=== PATIENT | female | born 1965 | race Caucasian/White ===

== ENCOUNTER 2017-03-28 16:49 | Emergency (ER) | payer BC ==
[2017-03-28 17:08] VITALS: BP 164/76
--- NOTE | 2017-03-28 17:54 | UC ---
Lower Extremity/Ankle HPI - HPI Summary HPI Summary: 52 year old female with fall down 4 wooden steps outside home due to wet steps, no lightheadedness, dizziness/ LOC headache prior to fall or afterwards. no incontinence. Patient states immediate pain, numbness, was able to crawl up stairs, get keys. Drove herself to , states pain worsening. No falling, no numbness now- replaced with pain. sensation grossly intact. - History of Current Complaint Chief Complaint: UCTrauma Stated Complaint: BACK AND HIP INJURY Time Seen by Provider: 03/28/17 17:21 Hx Obtained From: Patient - Allergies/Home Medications Allergies/Adverse Reactions: Allergies Allergy/AdvReac Type Severity Reaction Status Date / Time Bees Allergy Swelling Uncoded 03/28/17 17:08 PMH/Surg Hx/FS Hx/Imm Hx Previously Healthy: Yes - Surgical History Surgical History: Yes Surgery Procedure, Year, and Place: Hysterectomy 1985; kidney age 6; APPENDECTOMY - Family History Known Family History: Positive: None Family History: NON CONTRIBUTORY - Social History Alcohol Use: None Substance Use Type: None Smoking Status (MU): Light Every Day Tobacco Smoker Type: Cigarettes Amount Used/How Often: 13 cigarettes in last 2 days Have You Smoked in the Last Year: Yes Household Exposure Type: Cigarettes - Immunization History Most Recent Tetanus Shot: unknown Review of Systems Musculoskeletal: Arthralgia, Decreased ROM, Myalgia All Other Systems Reviewed And Are Negative: Yes Physical Exam Triage Information Reviewed: Yes Appearance: No Pain Distress, Pain Distress - mild at rest, moderate with movement Vital Signs: Initial Vital Signs Temp 98.3 F 03/28/17 17:00 Pulse 100 03/28/17 17:00 BP 164/76 03/28/17 17:00 Pulse Ox 98 03/28/17 17:00 Vital Signs Reviewed: Yes Abdomen Description: Positive: Nontender Musculoskeletal: Positive: Other: - full ankle, knee, toes ROM/strengt= b/l, no tenderness with R hip palption, no hand, wrist, elbow, shoulder tendnerness b/l , full ROM cervical grossly, no tenderness over thoracic spine- + erythema, mild edema over lower spine ~ L@ level with pain with palpation over, extending over SI crest L laterally. + mild ecchymosis. PT pulses 2+ b/l. Ambulatory with antalgic gait favoring L side. negative straight leg. reflexes diminished b/l ach, pat. patient voided on own without complication, no incontinence,denies numbness, tingling, sensation grossly intact b/l LEs Neurological: Positive: Alert, Muscle Tone Normal Psychological Exam: Normal Skin: Positive: Other - mild erythema without skin breakage lower back, mild ecchymosis Lower Extremity Course/Dx - Course Course Of Treatment: radiograph negative- Motrin, percocet as needed for pain. Percocet for extreme pain, f/u in Er with increased symtpoms, incontinence. - Differential Dx/Diagnosis Differential Diagnosis/HQI/PQRI: Contusion, Osteomyelitis, Sprain, Strain, Tendonitis Provider Diagnoses: contusion, L hip, lower back strain Discharge - Discharge Plan Condition: Stable Disposition: HOME Prescriptions: oxyCODONE/Acetamin 5/325 MG* [Percocet 5/325 TAB*] 1 tab PO Q4H PRN #14 tab MDD 6 PRN Reason: Pain Patient Education Materials: Contusion in Adults (ED), Low Back Strain (ED) Forms: *Work Release Referrals: Yamileth Donaldson MD [Primary Care Provider] - Additional Instructions: - Return to ER with incontinence, increased pain, numbness/ dificulty walking or new symptoms - Percocet every 4 hours as needed for pain- do not take more than [address], operate machinery on medication - Follow up with primary if no relief within 2 days - ICe - Motrin 400-600 mg every 4-6 hours to decrease inflammation/ pain
--- NOTE | 2017-03-28 18:05 | RAD ---
Indication: Lumbar and LEFT hip pain post fall. Comparison: December 23, 2015 CT. Technique: Supine AP pelvis and AP and frog-leg lateral views LEFT hip. Report: The LEFT hip is normally located. Negative for pelvic joint diastases. Negative for LEFT proximal femur or pelvic fracture. Preserved hip joint spaces. Unremarkable soft tissue contours. IMPRESSION: No radiographic evidence for LEFT hip fracture.
--- NOTE | 2017-03-28 18:07 | RAD ---
Indication: L2-L4 region pain and bruising post fall. Comparison: December 23, 2015 CT. Technique: AP, lateral, and oblique views lumbar sacral spine. Report: Alignment is anatomic. No cortical disruption or trabecular impaction to indicate a vertebral body fracture. Oblique views without evidence for spondylolysis. Multilevel mild vertebral endplate osteophytosis without significant disc space narrowing. Atherosclerotic calcification of the abdominal aorta. Unremarkable paraspinal soft tissue contours. Pelvic phleboliths noted. IMPRESSION: Negative for lumbar sacral spine fracture or spondylolisthesis.
[2017-03-28] MEDS ORDERED: Ibuprofen TAB* 600 MG PO ONE (18:09)
== END 2017-03-28 18:34 | disposition home or self-care (01) ==
LOC: UCEAST 16:49
DX: S70.02XA Contusion of left hip, initial encounter (principal); S39.012A Strain of muscle, fascia and tendon of lower back, initial encounter; W10.9XXA Fall (on) (from) unspecified stairs and steps, initial encounter; Y93.9 Activity, unspecified; Y92.009 Unspecified place in unspecified non-institutional (private) residence as the place of occurrence of the external cause; Y99.9 Unspecified external cause status; Z72.0 Tobacco use
CPT/HCPCS: 72110; 99212; A9270-GY; G0463

== ENCOUNTER 2017-08-13 07:55 | Emergency (ER) | payer BC ==
[2017-08-13 08:11] VITALS: BP 139/77
--- NOTE | 2017-08-13 08:51 | UC ---
Ear Complaint HPI - HPI Summary HPI Summary: 3 weeks of sinus pain and congestion now both ears are hurting - History of Current Complaint Chief Complaint: UCRespiratory Stated Complaint: HEAD/CHEST CONGESTION EAR PAIN Time Seen by Provider: 08/13/17 08:42 Hx Obtained From: Patient Hx Last Menstrual Period: hyster ?: No Onset/Duration: Gradual Onset, Lasting Weeks - 3, Still Present Severity Initially: Moderate Severity Currently: Moderate Pain Intensity: 8 Pain Scale Used: 0-10 Numeric Aggravating Factors: Nothing Alleviating Factors: Nothing Associated Signs/Symptoms: Positive: URI Symptoms - Allergies/Home Medications Allergies/Adverse Reactions: Allergies Allergy/AdvReac Type Severity Reaction Status Date / Time Bees Allergy Swelling Uncoded 08/13/17 08:07 Home Medications: Home Medications Varenicline (NF) [Chantix 1 MG TAB (NF)] 1 mg PO DAILY 08/13/17 [History Confirmed 08/13/17] PMH/Surg Hx/FS Hx/Imm Hx Previously Healthy: Yes - Surgical History Surgical History: Yes Surgery Procedure, Year, and Place: Hysterectomy 1985; kidney age 6; APPENDECTOMY - Family History Known Family History: Positive: None - Social History Occupation: Employed Full-time Lives: With Family Alcohol Use: None Substance Use Type: None Smoking Status (MU): Light Every Day Tobacco Smoker Type: Cigarettes Amount Used/How Often: 13 cigarettes in last 2 days Have You Smoked in the Last Year: Yes Household Exposure Type: Cigarettes Cessation Counseling: Counseled 3+Min - 10 Min - has started chantix - Immunization History Most Recent Tetanus Shot: unknown Review of Systems Constitutional: Negative Skin: Negative Eyes: Negative ENT: Sore Throat, Ear Ache, Nasal Discharge, Sinus Congestion, Sinus Pain/ Tenderness Respiratory: Negative Cardiovascular: Negative Gastrointestinal: Negative Genitourinary: Negative Motor: Negative Neurovascular: Negative Musculoskeletal: Negative Neurological: Negative Psychological: Negative Is Patient Immunocompromised?: No All Other Systems Reviewed And Are Negative: Yes Physical Exam Triage Information Reviewed: Yes Appearance: Well-Appearing, No Pain Distress, Well-Nourished Vital Signs: Initial Vital Signs Temp 97.6 F 08/13/17 08:08 Pulse 78 08/13/17 08:08 Resp 16 08/13/17 08:08 BP 139/77 08/13/17 08:08 Pulse Ox 100 08/13/17 08:08 Vital Signs Reviewed: Yes Eye Exam: Normal Eyes: Positive: Conjunctiva Clear ENT Exam: Normal ENT: Positive: Normal ENT inspection, Hearing grossly normal, Pharynx normal, Nasal congestion, Nasal drainage, TMs normal, Sinus tenderness, Uvula midline. Negative: Tonsillar swelling, Tonsillar exudate, Trismus, Muffled voice, Hoarse voice, Dental tenderness Dental Exam: Normal Neck exam: Normal Neck: Positive: Supple, Nontender, No Lymphadenopathy Respiratory Exam: Normal Respiratory: Positive: Chest non-tender, Lungs clear, Normal breath sounds, No respiratory distress, No accessory muscle use Cardiovascular Exam: Normal Cardiovascular: Positive: RRR, No Murmur, Pulses Normal, Brisk Capillary Refill Musculoskeletal Exam: Normal Musculoskeletal: Positive: Strength Intact, ROM Intact, No Edema Neurological Exam: Normal Neurological: Positive: Alert, Muscle Tone Normal Psychological Exam: Normal Skin Exam: Normal Ear Complaint Course/Dx - Course Course Of Treatment: Augmentin, flonase increase fluids, continue Chantix follow with pcp prn - Differential Dx/Diagnosis Provider Diagnoses: Acute Sinusitis Discharge - Discharge Plan Condition: Stable Disposition: HOME Prescriptions: Amoxicillin/Clavulanate TAB* [Augmentin TAB 875*] 875 mg PO BID #20 tab Fluticasone NASAL SPRAY 50MCG* [Flonase NASAL SPRAY 50MCG*] 2 spray BOTH NARES DAILY #1 btl Patient Education Materials: How to Stop Smoking (ED), Sinusitis (ED) Referrals: Yamileth Donaldson MD [Primary Care Provider] - If Needed
== END 2017-08-13 08:55 | disposition home or self-care (01) ==
LOC: UCEAST 07:55
DX: J01.90 Acute sinusitis, unspecified (principal); Z71.6 Tobacco abuse counseling; F17.210 Nicotine dependence, cigarettes, uncomplicated
CPT/HCPCS: 99212; G0463

== ENCOUNTER 2018-05-18 10:09 | Emergency (ER) | payer BC ==
--- NOTE | 2018-05-18 10:58 | ED ---
HPI Chest Pain - HPI Summary HPI Summary: The pt is a 53 y/o female [facility] c/o L sided CP since 3 days ago worsened today morning. The pain rated 8/10 in severity is described as stabbing and radiates to the L shoulder and LUE. She notes nausea, cough, metallic taste, loss of appetite, a metallic taste in the mouth, numbness and dizziness but denies L breast pain, fever, chills, diarrhea, vomiting, and SOB. She took Ibuprofen and Alleve to no relief. - History of Current Complaint Chief Complaint: EDChestPainROMI Time Seen by Provider: 05/18/18 10:48 Hx Obtained From: Patient Hx Last Menstrual Period: hyster Onset/Duration: Started Days Ago - 3 days, Still Present Initial Severity: Severe Current Severity: Severe Pain Intensity: 8 Pain Scale Used: 0-10 Numeric Chest Pain Location: Discrete at: - L chest Chest Pain Radiates To:: Shoulder - L, Arm - L Character: Sharp/Stabbing Alleviating Factor(s): Nothing - Allergy/Home Medications Allergies/Adverse Reactions: Allergies Allergy/AdvReac Type Severity Reaction Status Date / Time bee venom protein (honey bee) Allergy Swelling Verified 05/18/18 10:26 PMH/Surg Hx/FS Hx/Imm Hx Previously Healthy: No Endocrine/Hematology History: Reports: Hx Diabetes - TYPE II- borderline Denies: Hx Thyroid Disease Cardiovascular History: Reports: Hx Hypercholesterolemia Denies: Hx Hypertension Respiratory History: Reports: Hx Asthma Denies: Hx Chronic Obstructive Pulmonary Disease (COPD) GI History: Denies: Hx Ulcer - Cancer History Cancer Type, Location and Year: None reported - Surgical History Surgery Procedure, Year, and Place: Hysterectomy 1985; kidney age 6; APPENDECTOMY Infectious Disease History: No Infectious Disease History: Reports: Hx Shingles - 2003 Denies: Hx Clostridium Difficile, Hx Hepatitis, Hx Human Immunodeficiency Virus (HIV), Hx of Known/Suspected MRSA, Hx Tuberculosis, Hx Known/Suspected VRE , Hx Known/Suspected VRSA, History Other Infectious Disease, Traveled Outside the [place] in Last 30 Days - Family History Known Family History: Positive: Hypertension, Other - Throat cancer- brother ; Lung cancer- mother Negative: Cardiac Disease Family History: CANCER - Social History Occupation: Employed Full-time Lives: With Family Alcohol Use: None Hx Substance Use: No Substance Use Type: Reports: None Hx Tobacco Use: Yes Smoking Status (MU): Former Smoker Type: Cigarettes Amount Used/How Often: 13 cigarettes in last 2 days Have You Smoked in the Last Year: Yes Review of Systems Constitutional: Negative - L breast pain, Other - Positive: Dizziness Negative: Fever, Chills Positive: Chest Pain - L sided Positive: Cough. Negative: Shortness Of Breath Gastrointestinal: Other - Positive: Metallic taste in the mouth, loss of appetite Positive: Nausea. Negative: Vomiting, Diarrhea Musculoskeletal: Other - Positive: L shoulder pain , LUE pain Positive: Numbness All Other Systems Reviewed And Are Negative: Yes Physical Exam - Summary Physical Exam Summary: GENERAL: Patient is a well developed and nourished F who is lying comfortable in the stretcher. Patient is not in any acute respiratory distress. HEAD AND FACE: Normocephalic EYES: PERRLA, EOMI x 2. EARS: Hearing grossly intact. MOUTH: Oropharynx within normal limits. NECK: Supple, trachea is midline, no adenopathy, no JVD, no carotid bruit. CHEST: Symmetric, no tenderness at palpation LUNGS: Clear to auscultation bilaterally. No wheezing or crackles. CVS: Regular rate and rhythm, S1 and S2 present, no murmurs or gallops appreciated. ABDOMEN: Soft, non-tender. Bowel sounds are normal. No abdominal abnormal pulsations. EXTREMITIES: Full ROM in all major joints, no edema, no cyanosis or clubbing. NEURO: Alert and oriented x 3. No acute neurological deficits. Speech is normal and follows commands. SKIN: Dry and warm Triage Information Reviewed: Yes Vital Signs On Initial Exam: Initial Vitals Temp Pulse Resp BP Pulse Ox 97.1 F 81 16 166/94 97 05/18/18 10:21 05/18/18 10:21 05/18/18 10:21 05/18/18 10:21 05/18/18 10:21 Vital Signs Reviewed: Yes Diagnostics - Vital Signs Vital Signs Temp Pulse Resp BP Pulse Ox 05/18/18 10:21 97.1 F 81 16 166/94 97 - Laboratory Result Diagrams: 05/18/18 11:53 05/18/18 11:53 Lab Statement: Any lab studies that have been ordered have been reviewed, and results considered in the medical decision making process. - Radiology CXR Radiology Interpretation Completed By: Radiologist - IMPRESSION: NO ACTIVE CARDIOPULMONARY DISEASE. The ED physician reviewed this radiology report. - EKG 10:26 Cardiac Rate: NL - 71 bpm EKG Rhythm: Sinus Rhythm Summary of EKG Findings: No ischemic changes Re-Evaluation - Re-Evaluation First Eval Re-Evaluation Time: 13:12 Change: Improved - The patient wants to leave AMA because she has to pick her children from school. She agreed to return to the ED in case of any chages or worsening of sx. Chest Pain Course/Dx - Course Course Of Treatment: A 53 year-old F presents to the ED with a CC of L sided CP since 3 days ago worsened today morning. The pain rated 8/10 in severity is described as stabbing and radiates to the L shoulder and LUE. She notes nausea , cough, metallic taste, loss of appetite, a metallic taste in the mouth, numbness and dizziness but denies fever, chills, vomiting, diarrhea and SOB. A physical exam is unremarkable. A CXR and an EKG are both unremarkable. In the ED course, pt was given ASA 324mg PO and NTG 0.4 mg SL which improved the symptoms. Patient will be discharged AMA with a final Dx of Chest Pain. I discussed results with patient. Upon re-evaluation, the patient wants to leave AMA because she has to pick her children from school. Strict return precautions given and she will otherwise follow up with her PCP and a technology architect. The pt agrees. Allergies noted. - Diagnoses Provider Diagnoses: Chest pain Discharge - Sign-Out/Discharge Documenting (check all that apply): Patient Departure - AMA - Discharge Plan Condition: Stable Disposition: AGAINST MEDICAL ADVICE Patient Education Materials: Chest Pain (ED) Referrals: Felix Dubon MD [Primary Care Provider] - Mike Gaviria MD [Medical Doctor] - Additional Instructions: Follow up with PCP in 1- 3 days. Follow up with the technology architect as a soon as possible. Return to ED for any new or worsening symptoms - Billing Disposition and Condition Condition: STABLE Disposition: Against Medical Advice - Attestation Statements Document Initiated by Scribe: Yes Documenting Scribe: Estelle Calles Provider For Whom Scribe is Documenting (Include Credential): Dr. Meena Carlton MD Scribe Attestation: Estelle Rico , scribed for Dr. Meena Carlton MD on 05/18/18 at 2048. Scribe Documentation Reviewed: Yes Provider Attestation: The documentation as recorded by the scribEstelle gonzalez accurately reflects the service I personally performed and the decisions made by me, Dr. Meena Carlton MD
[2018-05-18 12:19] LABS: ABS Basophils 0.1 10^3/ul (0-0.2); ABS Eosinophils 0.1 10^3/ul (0-0.6); ABS Lymphocytes 3.9 10^3/ul (1.0-4.8); ABS Monocytes 0.5 10^3/ul (0-0.8); ABS Neutrophils 3.3 10^3/ul (1.5-7.7); ABS Nucleated RBC 0 10^3/ul; Eosinophil % 1.5 % (0-6); Hematocrit 46 % (35-47); Hemoglobin 15.7 g/dl (12.0-16.0); Lymphocyte % 49.3 % (25-47); Mean Corpuscular HGB Conc 34 g/dl (31-36); Mean Corpuscular Hemoglobin 29 pg (27-31); Mean Corpuscular Volume 87 fL (80-97); Mean Platelet Volume 9.6 um3 (7.4-10.4); Nucleated Red Blood Cells % 0.1; Platelet Count 208 10^3/ul (150-450); Red Blood Count 5.35 10^6/ul (4.00-5.40); Red Cell Distribution Width 13 % (10.5-15)
[2018-05-18 12:22] LABS: Urine Appearance Clear; Urine Blood Negative (Negative); Urine Color Yellow; Urine Ketones Negative (Negative); Urine Protein Negative (Negative); Urine Urobilinogen Negative (Negative)
--- NOTE | 2018-05-18 12:25 | RAD ---
HISTORY: cp COMPARISONS: December 16, 2014 VIEWS: 4: Frontal dual-energy and lateral views of the chest. FINDINGS: CARDIOMEDIASTINAL SILHOUETTE: The cardiomediastinal silhouette is normal. DONNA: The donna are normal. PLEURA: The costophrenic angles are sharp. No pleural abnormalities are noted. LUNG PARENCHYMA: The lungs are clear. ABDOMEN: The upper abdomen is clear. There is no subphrenic gas. BONES AND SOFT TISSUES: No bone or soft tissue abnormalities are noted. OTHER: None. IMPRESSION: NO ACTIVE CARDIOPULMONARY DISEASE.
[2018-05-18 12:30] LABS: INR 0.89 (0.77-1.02)
[2018-05-18 12:38] LABS: EGFR Non-African American 79.9 (>60)
[2018-05-18] MEDS ORDERED: Aspirin 81 mg CHEW TAB* 81 MG TAB.CHEW PO ONE (13:06)
[2018-05-18] MEDS ORDERED: Nitroglycerin TAB 0.4 MG* 0.4 MG TAB SL ONE (13:06)
[2018-05-18 13:24] VITALS: BP 168/97
== END 2018-05-18 13:23 | disposition left against medical advice (07) ==
LOC: ED 10:09
DX: R07.89 Other chest pain (principal); R11.0 Nausea; R05 Cough; R42 Dizziness and giddiness; R20.0 Anesthesia of skin; Z91.030 Bee allergy status; Z87.891 Personal history of nicotine dependence
CPT/HCPCS: 36415; 71046; 80053; 81003; 83605; 83880; 84484; 85025; 85379; 85610; 85730; 93005; 99283; A9270-GY

== ENCOUNTER 2019-10-14 12:04 | Emergency (ER) | payer BC ==
[2019-10-14 12:24] VITALS: BP 137/74
--- NOTE | 2019-10-14 12:56 | UC ---
General HPI - HPI Summary HPI Summary: 54yo female presenting with "painful lump between breasts" x3 days. Patient states she can feel the lump. States she thought it was from her wire in her bra poking her but it has not improved since wearing bra without wire. 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 States pain is worse with lying flat, pushing on it, and taking deep breaths. Denies radiating pain. Notes nonproductive cough that she has had "for months since starting smoking again." Denies n/v. Denies abd pain. Denies fever and chills. Denies sob and difficulty breathing. PMHx significant for GERD and prediabetes. Currently taking "otc medication for gerd." - History of Current Complaint Chief Complaint: UCAbdominalPain Stated Complaint: LUMP ON MID CHEST Hx Obtained From: Patient Hx Last Menstrual Period: hyster Pain Intensity: 8 - Allergy/Home Medications Allergies/Adverse Reactions: Allergies Allergy/AdvReac Type Severity Reaction Status Date / Time bee venom protein (honey bee) Allergy Swelling Verified 10/14/19 12:20 Home Medications: Home Medications Calcium Carbonate [Antacid] 1 dose PO ONCE PRN 10/14/19 [History Confirmed 10/13] Ibuprofen 400 mg PO ONCE PRN 10/14/19 [History Confirmed 10/14/19] Naproxen Sodium [Aleve] 440 mg PO ONCE PRN 10/14/19 [History Confirmed 10/14/19] PMH/Surg Hx/FS Hx/Imm Hx Endocrine History: Diabetes - prediabetes GI/ History: Gastroesophageal Reflux - Surgical History Surgical History: Yes Surgery Procedure, Year, and Place: Hysterectomy 1985; kidney age 6; APPENDECTOMY - Family History Known Family History: Positive: Hypertension, Other - Throat cancer- brother ; Lung cancer- mother Negative: Cardiac Disease Family History: CANCER - Social History Alcohol Use: None Substance Use Type: None Smoking Status (MU): Light Every Day Tobacco Smoker Type: Cigarettes Amount Used/How Often: 1 ppd Have You Smoked in the Last Year: Yes When Did the Patient Quit Smoking/Using Tobacco: 04/23/18 Household Exposure Type: Cigarettes - Immunization History Most Recent Tetanus Shot: unknown Review of Systems All Other Systems Reviewed And Are Negative: Yes Constitutional: Positive: Negative Skin: Positive: Other - "painful lump between breasts" ENT: Positive: Negative Respiratory: Positive: Cough Cardiovascular: Positive: Negative Gastrointestinal: Positive: Negative Musculoskeletal: Positive: Negative Neurological/Mental Status: Positive: Negative Physical Exam - Summary Physical Exam Summary: Vital Signs Reviewed: Yes A+Ox3, no distress Eyes: Conjunctiva Clear ENT: Hearing grossly normal Neck: Positive: Supple Respiratory: Positive: No respiratory distress, No accessory muscle use + CTA throughout no w/r Cardiovascular: RRR nl s1, s2 no m/r Abd: soft + BS nt/nd no guarding Musculoskeletal Exam: PAUL x 4 without difficulty, TTP of the xiphoid process and b/l adjacent ribs, no erythema or ecchymosis Neurological: Positive: Alert Psychological: Positive: age appropriate behavior Skin: Positive: no rash, no ecchymosis Vital Signs: Initial Vital Signs Temp 97.5 F 10/14/19 12:15 Pulse 80 10/14/19 12:15 Resp 18 10/14/19 12:15 BP 137/74 10/14/19 12:15 Pulse Ox 95 10/14/19 12:15 Diagnostics - Radiology CXR Radiology Interpretation Completed By: Radiologist Summary of Radiographic Findings: 2 views of the chest demonstrate no mediastinal shift. Heart is of normal size and configuration. Lung perez are clear. IMPRESSION: No active cardiopulmonary disease is noted. Course/Dx - Course Course Of Treatment: Chest x-ray today unremarkable. Discussed muscle strain vs possible trauma to xiphoid process given HPI and PE findings. Instructed to continue with otc analgesics and use otc lidocaine patches as well. Instructed to rest and apply ice/heat as well. Instructed to go to ED with any new or worsening symptoms. Patient voiced understanding and agreed with treatment plan. - Diagnoses Provider Diagnosis: Xiphoid pain Discharge ED - Sign-Out/Discharge Documenting (check all that apply): Patient Departure All imaging exams completed and their final reports reviewed: Yes - Discharge Plan Condition: Stable Disposition: HOME Patient Education Materials: Costochondritis (ED) Referrals: Felix Dubon MD [Primary Care Provider] - Additional Instructions: As discussed, your radiographs were normal. You may continue with ibuprofen and/or tylenol as directed for pain relief. You may also use the over the counter lidocaine patches (Salonpas) for pain relief. Refrain from strenuous physical activity until pain has fully resolved. Go to the emergency room if you experience severe pain, difficulty breathing, or chest pain. - Billing Disposition and Condition Condition: STABLE Disposition: Home
== END 2019-10-14 14:14 | disposition home or self-care (01) ==
LOC: UCEAST 12:04
DX: R07.2 Precordial pain (principal); R73.03 Prediabetes; K21.9 Gastro-esophageal reflux disease without esophagitis; Z91.030 Bee allergy status; F17.210 Nicotine dependence, cigarettes, uncomplicated
CPT/HCPCS: 71046; 99211; G0463